=== PATIENT | female | born 1960 | race Two or more races ===

== ENCOUNTER 2017-11-21 08:46 | Outpatient (CLI) | payer OTHER ==
[~2017-11-21 08:46] MED LIST: ASTELIN137 MCG NS; LISINOPRIL2.5 MG; PREMARIN0.45 MG PO; SULAR10 MG PO; SULAR17 MG; SYNTHROID50 MCG; VAGIFEM25 MCG VG
== END 2017-11-21 08:48 | disposition home or self-care (01) ==
LOC: SONOGRAMA 08:46 → MAMO-SONO 09:15
DX: D35.02 Benign neoplasm of left adrenal gland (principal); D35.01 Benign neoplasm of right adrenal gland

== ENCOUNTER → 2017-12-11 | Outpatient (CLI) | payer OTHER | END | disposition home or self-care (01) | LOC: NUCLEAR 09:20 | DX: R00.2 Palpitations (principal) ==

== ENCOUNTER 2018-07-30 09:08 | Outpatient (CLI) | payer OTHER | END 2018-07-30 09:23 | disposition home or self-care (01) | LOC: TOM 09:08 | DX: R10.31 Right lower quadrant pain (principal); R10.32 Left lower quadrant pain; R14.0 Abdominal distension (gaseous) ==

== ENCOUNTER 2018-08-28 10:59 | Outpatient (CLI) | payer OTHER | END 2018-08-28 11:02 | disposition home or self-care (01) | LOC: SONOGRAMA 10:59 | DX: M25.512 Pain in left shoulder (principal); E03.8 Other specified hypothyroidism; M19.90 Unspecified osteoarthritis, unspecified site; M15.8 Other polyosteoarthritis; M25.50 Pain in unspecified joint ==

== ENCOUNTER 2021-04-16 11:48 | Outpatient (CLI) | payer OTHER | END 2021-04-17 10:50 | disposition home or self-care (01) | LOC: MAMO-SONO 11:48 | PROVIDERS: ATTEND General Practice | DX: N28.89 Other specified disorders of kidney and ureter (principal); R92.1 Mammographic calcification found on diagnostic imaging of breast; Z12.31 Encounter for screening mammogram for malignant neoplasm of breast; N64.59 Other signs and symptoms in breast ==

== ENCOUNTER 2021-10-09 11:04 | Outpatient (CLI) | payer OTHER | END 2021-10-09 11:24 | disposition home or self-care (01) | LOC: NUCLEAR 11:04 | PROVIDERS: ATTEND Internal Medicine Rheumatology | DX: M15.9 Polyosteoarthritis, unspecified (principal); M25.50 Pain in unspecified joint; M81.0 Age-related osteoporosis without current pathological fracture; Z91.048 Other nonmedicinal substance allergy status | CPT/HCPCS: 77080; 78306; A9503 ==

== ENCOUNTER 2022-08-21 15:48 | Outpatient (CLI) | payer OTHER | END 2022-08-21 16:08 | disposition home or self-care (01) | LOC: RAD 15:48 | PROVIDERS: ATTEND Internal Medicine Rheumatology | DX: M17.0 Bilateral primary osteoarthritis of knee (principal) ==

== ENCOUNTER 2022-12-25 07:34 | Outpatient (CLI) | payer OTHER | END 2022-12-25 07:48 | disposition home or self-care (01) | LOC: SONOGRAMA 07:34 | PROVIDERS: ATTEND Internal Medicine Gastroenterology | DX: R10.9 Unspecified abdominal pain (principal) ==

== ENCOUNTER 2023-06-05 15:41 | Outpatient (CLI) | payer OTHER | END 2023-06-05 15:49 | disposition home or self-care (01) | LOC: RAD 15:41 | PROVIDERS: ATTEND Chiropractor | DX: M99.01 Segmental and somatic dysfunction of cervical region (principal); M99.02 Segmental and somatic dysfunction of thoracic region; M99.03 Segmental and somatic dysfunction of lumbar region; M99.05 Segmental and somatic dysfunction of pelvic region ==

== ENCOUNTER 2023-06-24 13:52 | Outpatient (CLI) | payer OTHER | END 2023-06-24 13:59 | disposition home or self-care (01) | LOC: MAMO-SONO 13:52 | PROVIDERS: ATTEND Obstetrics & Gynecology | DX: N60.11 Diffuse cystic mastopathy of right breast (principal) ==

== ENCOUNTER 2024-04-25 13:23 | Emergency (ER) | payer OTHER ==
[~2024-04-25] VITALS: Ht 162.6 cm; Wt 63.5 kg
[2024-04-25] MEDS ORDERED: VERAPAMIL ER240 MG PO (14:51)
[2024-04-25] MEDS ORDERED: ROSUVASTATIN CA20 MG PO (14:52)
[2024-04-25] MEDS ORDERED: INDAPAMIDE1.25 MG PO (14:52)
[2024-04-25] MEDS ORDERED: LEVOTHYROXINE25 MCG (14:52)
[2024-04-25] MEDS ORDERED: ASPIRIN 81 MG TAB.CHEW PO ONE (15:15)
[2024-04-25] MEDS ORDERED: FAMOTIDINE/PF 20 MG/2 ML VIAL IV ONE (15:15)
[2024-04-25] MEDS ORDERED: ONDANSETRON HCL 2 MG/ML VIAL IV ONE (15:15)
[2024-04-25 15:45] LABS: HEMATOCRIT 45.8 % (36.0-45.00); HEMOGLOBIN 15.1 g/dL (12.0-15.00); MEAN CORPUSCULAR HEMOGLOBIN 28.7 pg (27.00-32.0); PLATELET COUNT 214 K/uL (150-450); RED BLOOD COUNT 5.27 M/uL (4.00-6.00); RED CELL DISTRIBUTION WIDTH 13.4 % (11.5-14.5)
[2024-04-25 16:09] LABS: INR 1.05; PARTIAL THROMBOPLASTIN TIME 29.3 SECONDS (22.0-34.0); PROTHROMBIN TIME 11.4 SECONDS (9.0-11.5)
[2024-04-25 16:14] LABS: ALBUMIN 3.8 gm/dL (3.4-5.0); BILIRUBIN TOTAL 0.48 mg/dL (0.3-1.2); CALCIUM 10.1 mg/dL (8.5-10.1); CREATININE SERUM 0.85 mg/dL (0.55-1.02); GFR 67.33; GLOBULINA 3.9 G/DL (2.4-3.5); POTASSIUM 3.91 mEq/L (3.5-5.1); TOTAL PROTEIN 7.7 gm/dL (6.4-8.2)
[2024-04-25 16:17] LABS: URINE APPEARANCE Clear; URINE BILIRRUBIN Negative (NEGATIVE); URINE BLOOD Negative; URINE COLOR Yellow; URINE GLUCOSE Negative (NEGATIVE); URINE KETONE Negative (NEGATIVE); URINE LEUKOCYTE Negative; URINE NITRATE Negative; URINE PROTEIN Negative (NEGATIVE)
[2024-04-25 16:20] LABS: URINE EPITHELIAL CELLS 21.6 uL (0.0-38.8); URINE RBC 2.2 uL (0.0-20.8); URINE WBC 3.6 uL (0.0-23.2)
[2024-04-25] MEDS ORDERED: PEPCID AC20 MG PO (18:52)
== END 2024-04-25 21:08 | disposition home or self-care (01) ==
LOC: ER 13:26
PROVIDERS: General Practice
DX: R12 Heartburn (principal); I10 Essential (primary) hypertension; E03.8 Other specified hypothyroidism; Z91.048 Other nonmedicinal substance allergy status

== ENCOUNTER 2024-12-14 09:11 | Outpatient (CLI) | payer OTHER ==
[~2024-12-14 09:11] MED LIST changes: +INDAPAMIDE1.25 MG PO; +LEVOTHYROXINE25 MCG; +PEPCID AC20 MG PO; +ROSUVASTATIN CA20 MG PO; +VERAPAMIL ER240 MG PO
== END 2024-12-14 09:13 | disposition home or self-care (01) ==
LOC: RAD 09:11
PROVIDERS: ATTEND Internal Medicine
DX: I11.9 Hypertensive heart disease without heart failure (principal); E78.2 Mixed hyperlipidemia; E11.9 Type 2 diabetes mellitus without complications

== ENCOUNTER 2025-01-10 12:09 | Outpatient (CLI) | payer OTHER | END 2025-01-10 12:19 | disposition home or self-care (01) | LOC: MAMO-SONO 12:09 | PROVIDERS: ATTEND General Practice | DX: N63.0 Unspecified lump in unspecified breast (principal); Z12.31 Encounter for screening mammogram for malignant neoplasm of breast ==